=== PATIENT | male | born 1965 ===

== ENCOUNTER 2020-10-25 09:46 | Emergency (ER) | payer OTHER, SELFPAY ==
--- NOTE | ~2020-10-25 | XR_ITS ---
EXAMINATION: XR FOOT, LEFT CLINICAL INFORMATION: Pain and swelling COMPARISON: None TECHNIQUE: AP, lateral, and oblique views of the left foot. FINDINGS: The bones and soft tissues are normal. No fracture. Alignment is anatomic. Joint spaces are maintained. XR/XR foot LT min 3V IMPRESSION: Unremarkable left foot exam.
[2020-10-25 10:32] VITALS: BP 125/69; PULSE 95; RESP 17; TEMP 36.6; O2SAT 100; BMI 26.6
--- NOTE | 2020-10-25 10:53 | ED.GENADULT ---
HPI - General Adult General Chief complaint: Extremity Injury, Lower Stated complaint: FEET PAIN AND SWELLING Time Seen by Provider: 10/25/20 10:53 Source: patient Limitations: no limitations History of Present Illness HPI narrative: Patient injured his left foot by stopping it about 1 week ago. Patient has had some slight swelling increasing pain since with difficulty sleeping last night. Pain is 6/10 increases with range of motion or palpation. Patient does have a history of type 2 diabetes denies other medical complaints. Patient denies any history of gouty arthritis in the past. Related Data Previous Rx's Medication Instructions Recorded ibuprofen 600 mg PO TID PRN #20 tab 10/25/20 Allergies Allergy/AdvReac Type Severity Reaction Status Date / Time No Known Allergies Allergy Verified 10/25/20 11:13 Review of Systems Constitutional: Constitutional: Denies body ache(s), Denies chills, Denies fever(s), Denies headache(s) and Denies weakness ENT: Denies headache(s) Cardiovascular: Cardiovascular: Denies chest pain and Denies dyspnea Respiratory: Respiratory: Denies cough and Denies dyspnea Gastrointestinal: Gastrointestinal: Denies nausea and Denies vomiting Musculoskeletal: Musculoskeletal: Denies joint swelling Comments: Left foot pain Integumentary/Breasts: Skin/Breast: Denies rash and Denies skin ulcer Neurologic: Denies headache(s) and Denies weakness Hematologic/Lymphatic: Hematologic/Lymphatic: Denies easy bleeding Allergic/Immunologic: Allergic/Immunologic: Denies urticaria PMFSH Past Medical History Attestation statement: The following information was validated with the patient. Social History Social History Advance Directives: No Advance Directives Information Provided: No Physical Exam Vital Signs: Vital Signs: Last Vital Signs Temp 98 F 10/25/20 10:32 Pulse 95 10/25/20 10:32 Resp 17 10/25/20 10:32 BP 125/69 10/25/20 10:32 Pulse Ox 100 10/25/20 10:32 Body Mass Index 26.6 vital signs have been reviewed as normal and appeared to be correct. Blood pressure normal. Heart rate normal. Respiration rate normal. Temperature normal. Oxygen saturation normal. Appearance: Alert. Oriented X3. No acute distress. Head: Normal external exam. Normocephalic. Atraumatic. Eyes: PERRLA. EOMI. ENT: Pharynx normal. Uvula midline. Moist mucous membranes. Neck: Soft full range of motion, no JVD CVS: Heart regular rate and rhythm no murmurs and rubs Respiratory: Breath sounds are clear to auscultation bilaterally. No accessory muscle use noted. Skin: Skin warm and dry. Normal skin color. Left foot no erythema low and lymphangitis Extremities: Left foot positive tenderness dorsum aspect proximal to the 1st 2nd and 3rd digits no deformity noted pulses a positive bounding sensations intact plantar aspect of foot no sign. No sign of diabetic ulceration site on left foot Neuro: Oriented X 3. No motor deficit. No sensory deficit. Reflexes normal. Course Course Course Narrative: Differential diagnosis: Left foot contusion Fracture Gouty arthritis Neuropathy pain 11:10 a.m. Left foot x-ray negative. Symptoms consistent with a left foot contusion versus gouty arthritis. Foot is somewhat hypersensitive to the touch. Patient is a diabetic would not put prednisone this time will do NSAIDs and follow-up PCP at this time Medical Decision Making Imaging Data foot: Radiologist's impression: [address] [id number] ReportSigned Patient: Salvador Haas#: [id number]: [id number]:[id number]/Sex: 55 / MADM Date: 10/25/20Loc: [facility].EDAttending Dr: Ordering Physician: Coretta Alexis DO Date of Service: 10/25/20 Procedure(s): XR foot LT min 3V Accession Number(s): [id number] cc: Coretta Alexis DO~ EXAMINATION: XR FOOT, LEFT CLINICAL INFORMATION: Pain and swelling COMPARISON: None TECHNIQUE: AP, lateral, and oblique views of the left foot. FINDINGS: The bones and soft tissues are normal. No fracture. Alignment is anatomic. Joint spaces are maintained. XR/XR foot LT min 3V IMPRESSION: Unremarkable left foot exam. Dictated By:LV VAZQUEZ MDSigned By:<Electronically signed by LV VAZQUEZ MD in OV>10/25/20 1058 DD/ 1050TD/TT: [employer] Processor: [facility] [place] Discharge Plan Discharge Clinical Impression: Foot contusion Patient Disposition: Home, Self-Care Instructions: Foot Contusion (ED) Additional Instructions: Follow-up with PCP is recommended. Your symptoms may be related to the injury the head of the foot or underlying gouty arthritis Take medications as prescribed. Follow up PCP Prescriptions: New ibuprofen 600 mg tablet 600 mg PO TID PRN (Reason: pain) Qty: 20 RF: 0 Referrals: Praful Alejandro MD [Primary Care Provider] - 2 days
== END 2020-10-25 11:26 | disposition home or self-care (01) ==
PROVIDERS: Emergency Provider Emergency Medicine; PCP Internal Medicine
DX: S90.32XA Contusion of left foot, initial encounter (principal); M79.672 Pain in left foot; R60.0 Localized edema; Y33.XXXA Other specified events, undetermined intent, initial encounter; Y93.9 Activity, unspecified; Y92.9 Unspecified place or not applicable; Y99.9 Unspecified external cause status; Z79.899 Other long term (current) drug therapy
CPT/HCPCS: 73630; 99283

== ENCOUNTER 2022-12-04 06:14 | Emergency (ER) | payer OTHER, SELFPAY ==
[2022-12-04 06:19] VITALS: BP 117/71; PULSE 106; RESP 16; TEMP 36.9; O2SAT 95; BMI 28.3
--- NOTE | 2022-12-04 07:37 | ED_ITS ---
HPI - General Adult General Chief complaint: General Medical Stated complaint: Bodyaches/Diarrhea Time Seen by Provider: 12/04/22 07:09 Source: patient Mode of arrival: ambulatory Limitations: no limitations History of Present Illness HPI narrative: 57-year-old male with history of diabetes, hypertension, hypercholesterolemia presents with diarrhea. Symptoms started 3 days ago with generalized myalgias which were improved by ibuprofen. Then around 2:00 a.m. yesterday afternoon, patient developed severe diarrhea. Was watery in nature. There is no fevers or chills. There is no blood in the stool. Associated with abdominal cramping that is [id number] in nature. Patient denies any sick contacts. There is no prior treatment. Patient describes his diarrhea as severe. He has so many episodes that he is unable to the given number to the number of episodes. Denies any recent antibiotic use. Patient is able tolerate oral intake. He does have some mild nausea. No vomiting. Related Data Previous Rx's Medication Instructions Recorded ibuprofen 600 mg tablet 600 mg PO TID PRN pain #20 tabs 10/25/20 loperamide 2 mg tablet (Imodium 2 mg PO Q6H PRN loose stool #10 12/04/22 A-D) tabs ondansetron 4 mg disintegrating 4 mg PO Q8H PRN nausea and 12/04/22 tablet vomiting #10 tabs Allergies Allergy/AdvReac Type Severity Reaction Status Date / Time No Known Allergies Allergy Verified 10/25/20 11:13 Review of Systems Review of Systems: CONSTITUTIONAL: Denies weight loss, fever and chills. HEENT: Denies changes in vision and hearing. RESPIRATORY: Denies SOB and cough. CV: Denies palpitations no CP. GI: + abdominal pain, nausea, and diarrhea. : Denies dysuria and urinary frequency. MSK: Denies myalgia and joint pain. SKIN: Denies rash and pruritus. NEUROLOGICAL: Denies headache and syncope. PSYCHIATRIC: Denies recent changes in mood. Denies anxiety and depression. All other ROS are negative unless in HPI PMFSH Social History Social History Alcohol intake: never Smoked in Last 30 Days: No Use of substances other than those prescribed or required for medical reasons: No Advance Directives: No Advance Directives Information Provided: No Physical Exam ED Vital Signs: Vital Signs - 24 hr 12/04/22 06:19 Temperature 98.5 F Pulse Rate 106 H Respiratory Rate 16 Blood Pressure 117/71 Pulse Oximetry 95 Oxygen Delivery Method Room Air BMI result Body Mass Index 28.3 GEN: Well developed, no acute distress, alert, oriented HEENT: Normocephalic, atraumatic, normal external ears, nose appears normal, no oropharyngeal edema or exudates Eyes: Normal to appearance Neck: Supple, no lymphadenopathy Respiratory: Talks in complete sentences, no respiratory distress, clear to auscultation bilaterally Cardiovascular: Regular rate and rhythm, no murmurs rubs or gallops Abdomen: Soft, nontender, nondistended, no guarding, no rebound Back: No CVA tenderness Extremities: No clubbing cyanosis or edema Neurologic: No focal neurologic deficits, cranial nerves 2-12 intact, strength is 5/5 bilaterally Skin: No rash Course Course Course Narrative: Patient presents with a likely viral gastroenteritis, he has been symptom likely treated. He is feeling much better. Will discharge at this time. Reviewed all lab work. No indication for hospitalization at this time Medications Administered Discontinued Medications Generic Name Dose Route Start Last Admin Trade Name Freq PRN Reason Stop Dose Admin Sodium Chloride 1,000 mls @ 999 mls/hr 12/04/22 07:15 12/04/22 08:30 Ns IV 12/04/22 08:15 999 mls/hr .Q1H1M GAGE Administration Ketorolac Tromethamine 15 mg 12/04/22 07:15 12/04/22 08:40 Ketorolac Tromethamine 15 Mg/Ml Vial IVPUSH 12/04/22 07:16 15 mg ONCE ONE Administration Loperamide HCl 2 mg 12/04/22 07:15 12/04/22 08:41 Loperamide Hcl 2 Mg Capsule PO 12/04/22 07:16 2 mg ONCE ONE Administration Ondansetron HCl 4 mg 12/04/22 07:15 12/04/22 08:40 Ondansetron Hcl 4 Mg/2 Ml Vial IVPUSH 12/04/22 07:16 4 mg ONCE ONE Administration Medical Decision Making Medical Decision Making MDM Narrative: 57-year-old male presents with nausea, vomiting, diarrhea. Abdomen is benign. The rest of his exam is unremarkable. I suspect patient has viral gastroenteritis. Cannot rule out bacterial enteritis. He has not had any recent antibiotic use, doubt C diff colitis. He is a diabetic and there certainly concerns for electrolyte abnormalities such as hypokalemia, severe hyperglycemia, DKA. My plan would be to evaluate the patient with laboratory analysis, CBC, lipase to rule out pancreatitis, hepatic panel to rule out acute viral hepatitis which could also present in a similar fashion, additional electrolyte abnormality. Additional differential diagnosis could include IBD, IBS, colitis. Doubt acute surgical abdomen. Doubt AAA or dissection. Has no urinary complaints to suggest pyelonephritis or UTI. Patient will have IV fluids, antiemetics, Imodium and re-evaluation. Should his abdomen exam change, would consider imaging at that time patient is unable to tolerate oral intake or other other significant abnormalities noted on our his workup, patient may require hospitalization Differential Diagnosis Differential Diagnoses: The differential diagnosis associated with the presentation includes (See above) Admission/Observation Consideration of admission/observation: Escalation of care including admission/ observation considered Lab Data MDM Lab Attestation statement: I reviewed the patient's lab results. 12/04/22 08:01 12/04/22 08:01 Labs: Lab Results 12/04/22 12/04/22 Range/Units 08:01 08:01 WBC 5.8 (4.8-10.8) X10*3/uL RBC 5.04 (4.60-5.80) X10*6/uL Hgb 14.6 (14.0-18.0) g/dl Hct 43.2 (42.0-52.0) % MCV 85.7 (80.0-98.0) fL MCH 29.0 (27.0-33.0) pg MCHC 33.8 (31.0-36.0) g/dl RDW 13.5 (11.0-16.0) % Plt Count 332 (160-400) X10*3/uL MPV 9.5 (9.4-12.4) fL Immature Gran % (Auto) 0.3 (0.0-0.4) % Neut % (Auto) 70.0 (45-73) % Lymph % (Auto) 15.5 L (20-40) % [place] % (Auto) 11.5 H (2-11) % Eos % (Auto) 2.4 (0-4) % Baso % (Auto) 0.3 (0-2) % Lymph # (Auto) 0.9 L (1.2-4.9) X10*3/uL [place] # (Auto) 0.7 (0.1-1.2) X10*3/uL Eos # (Auto) 0.1 (0.0-0.4) X10*3/uL Baso # (Auto) 0.0 (0.0-0.2) X10*3/uL Abs Immat Gran (auto) 0.02 (0.00-0.03) X10*3/uL Absolute Neuts (auto) 4.1 (2.0-8.3) x10*3/uL Absolute Nucleated RBC 0.000 (0.0-0.012) X10*3/uL Nucleated RBC % (auto) 0.0 (0.0-0.2) /100WBC Sodium 135 (135-145) mmol/L Potassium 4.2 (3.3-5.1) mmol/L Chloride 104 (96-108) mmol/L Carbon Dioxide 25 (22-29) mmol/L Anion Gap 10 L (12-20) BUN 10 (9-16) mg/dL Creatinine 0.92 (0.5-1.4) mg/dL Estim Creat Clear Calc 86.9 Estimated GFR > 60 Random Glucose 170 H (60-115) mg/dL Calcium 9.0 (8.4-10.2) mg/dL Magnesium 2.1 (1.6-2.6) mg/dL Total Bilirubin 1.0 (0.0-1.0) mg/dL AST 24 (5-37) U/L ALT 22 (0-40) U/L Alkaline Phosphatase 99 (39-117) U/L Total Protein 6.8 (6.5-8.0) g/dL Albumin 3.9 (3.5-5.0) g/dL Lipase 46 (8-78) U/L Prescription Management I considered prescription management with: Pain Medication and Antibiotic Discharge Plan Discharge Clinical Impression: Gastroenteritis Patient Disposition: Home, Self-Care Instructions: Gastroenteritis (ED), Acute Diarrhea (ED) Prescriptions: New ondansetron 4 mg tablet,disintegrating 4 mg PO Q8H PRN (Reason: nausea and vomiting) Qty: 10 0RF loperamide [Imodium A-D] 2 mg tablet 2 mg PO Q6H PRN (Reason: loose stool) Qty: 10 0RF No Action ibuprofen 600 mg tablet 600 mg PO TID PRN (Reason: pain) Qty: 20 0RF Referrals: Praful Alejandro MD [Primary Care Provider] - 3 days (if not improved)
[2022-12-04 08:08] LABS: MANUAL DIFF FLAG NO
[2022-12-04 08:11] LABS: Basophils Percent Auto 0.3 % (0-2); Eosinophils Absolute Auto 0.1 X10*3/uL (0.0-0.4); Eosinophils Percent Auto 2.4 % (0-4); Hematocrit 43.2 % (42.0-52.0); Hemoglobin 14.6 g/dl (14.0-18.0); Imm Gran Abs Auto 0.02 X10*3/uL (0.00-0.03); Imm Gran Pct Auto 0.3 % (0.0-0.4); Lymphocytes Absolute Auto 0.9 X10*3/uL (1.2-4.9); Lymphocytes Percent Auto 15.5 % (20-40); Mean Corpuscular HGB Conc 33.8 g/dl (31.0-36.0); Mean Corpuscular Volume 85.7 fL (80.0-98.0); Mean Platelet Volume 9.5 fL (9.4-12.4); Monocytes Absolute Auto 0.7 X10*3/uL (0.1-1.2); Monocytes Percent Auto 11.5 % (2-11); Neutrophils Absolute Auto 4.1 x10*3/uL (2.0-8.3); Platelet Count 332 X10*3/uL (160-400); Red Blood Count 5.04 X10*6/uL (4.60-5.80); Red Cell Distribution Width 13.5 % (11.0-16.0); White Blood Count 5.8 X10*3/uL (4.8-10.8)
[2022-12-04 08:26] LABS: Alanine Aminotransferase 22 U/L (0-40); Albumin Level 3.9 g/dL (3.5-5.0); Alkaline Phosphatase 99 U/L (39-117); Anion Gap 10 (12-20); Aspartate Amino Transferase 24 U/L (5-37); Blood Urea Nitrogen 10 mg/dL (9-16); Carbon Dioxide 25 mmol/L (22-29); Chloride 104 mmol/L (96-108); Creatinine Clr Calc Pharmacy 86.9; Estimated Glomerular Filt Rate > 60; Glucose Random 170 mg/dL (60-115); Lipase 46 U/L (8-78); Magnesium 2.1 mg/dL (1.6-2.6); Potassium 4.2 mmol/L (3.3-5.1); Sodium 135 mmol/L (135-145); Total Protein 6.8 g/dL (6.5-8.0)
[2022-12-04] MEDS: 0.9 % Sodium Chloride 1,000 ML 999 ML IV (08:30)
[2022-12-04] MEDS: ondansetron HCL 4 MG/2 ML VIAL IVPUSH (08:40)
[2022-12-04] MEDS: Ketorolac Tromethamine 15 MG/ML VIAL IVPUSH (08:40)
[2022-12-04] MEDS: Loperamide HCl 2 MG CAPSULE PO (08:41)
--- NOTE | 2022-12-04 09:02 | PC.NURSE ---
pt alert/oriented. after assuming care of pt reports that he is feeling much better than when he first got here. reporting no pain.
--- NOTE | 2022-12-04 10:09 | PC.NURSE ---
20g iv inserted rac, fluids started, meds given per order. reported of to MURTAZA Quesada.
== END 2022-12-04 10:23 | disposition home or self-care (01) ==
PROVIDERS: Emergency Provider Emergency Medicine; PCP Internal Medicine
DX: K52.9 Noninfective gastroenteritis and colitis, unspecified (principal); M79.10 Myalgia, unspecified site; Z79.899 Other long term (current) drug therapy
CPT/HCPCS: 36415; 80053; 83690; 83735; 85025; 96361; 96374; 96375; 99284; J1885; J2405